=== PATIENT | male | born 1985 | race Caucasian/White ===

== ENCOUNTER 2022-09-01 23:22 | Emergency (ER) | payer OTHER ==
[~2022-09-01 23:22] MED LIST: ADVIL200 MG PO; ANAPROX DS550 MG PO; CLARITIN10 MG PO; DARVOCET N 1001 TAB PO; FLEXERIL10 MG PO; MOTRIN800 MG PO; NILSTAT,MY500000 UN/ PO; PRILOSEC20 M1 PO; ROBAXIN750 MG PO; TRIMOX500 MG PO; ZOFRAN4 MG PO
== END 2022-09-02 00:02 | disposition home or self-care (01) ==
LOC: ED 23:22
DX: N44.00 Torsion of testis, unspecified (principal); Z98.890 Other specified postprocedural states